=== PATIENT | male | born 2005 | race Caucasian/White ===

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

== ENCOUNTER 2024-01-30 13:46 | Outpatient (AMB) | payer OTHER, MEDICAID, SELFPAY ==
[2024-01-30 13:55] VITALS: BP 106/60; PULSE 78; BMI 17.9
--- NOTE | 2024-01-30 13:55 | MHC.OFFVIS ---
Intake Vital Signs 01/30/24 13:55 Height 6 ft Weight 132 lb BMI 17.9 BP 106/60 Blood Pressure Location Lt brachial Position Sitting Pulse 78 Intake Visit Reasons: 3 month follow up Intake Note: Patient follow up for abdominal pain. Patient denies any GI issues. 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 Discuss with patient the importance of avoiding dietary triggers and late night snacking. Staying upright for minimal 3 hours after meals discussed with patient specially that patient has lax LES. Patient was encouraged to continue eating more frequently and smaller meals. Try to change his circadian rhythm and sleep at night time and be awake during the day. Patient was also encouraged to spent time outside and do activities. Protein shakes daily 1-2 a day. Referral to psychiatry. Patient has very flat affect denies feeling depressed, however he admits to being on motivated. Patient will also be referred to laboratory technologist. He keeps losing weight. He is not eating enough calories. He was asked to eat at least 3000 calories a day. Patient can start taking low-dose enzymes to see if he will have change in his appetite and will aid in digestion. We did rule out however pancreatic insufficiency. I will see him in 3 months, sooner on as needed basis. Both patient and his mother are agreeable to this plan and verbalize understanding of instructions. They were given the opportunity to ask questions and all questions answered. ? Thank you for allowing me to participate in his care Orders Referrals Psychiatry Referral R45.89 [employer] Nutrition Referral R63.4 Medications New idlqfo-tmwgntxn-bdonalg 12,000-38,000 -60,000 unit (Creon) administer with meals and/or snacks 1 cap PO QID 120 caps 3RF R10.9 Refilled pantoprazole 20 mg PO DAILY 90 tabs 1RF TODAY'S VISIT Patient is here today for follow-up. Patient is accompanied by his mother. Patient reports that he went to see laboratory technologist and was told that he should eat as much as possible. Patient states that he has appetite and is feeling better after starting the pantoprazole. Patient reports that if he eats small amounts and more often he feels better. Occasionally patient will eat large meals and then he will have acid reflux. Patient admits that sometimes he will have chest pressure. On the left side of his chest. Patient describes this as a weird feeling not particularly chest pain. The pain is not reproducible. Denies any shortness of breath or discomfort. Patient despite eating a lot he continues to lose weight. We did rule out pancreatic insufficiency in the past. Patient states that he tried Creon in the past, however he did not see much of a difference. Medication was very expensive and patient decided not to take it. Patient reports that he is moving his bowels well without any issues. Patient states that he is feeling better specially when he follows recommendation made last visit. If he eats more often and smaller meals he definitely feels better. [facility] Medical History Gastroparesis GERD (gastroesophageal reflux disease) Surgical History History of esophagogastroduodenoscopy (EGD) No pertinent past surgical history Family History Mother HTN (hypertension) Maternal Grandmother HTN (hypertension) Social History Household Members: Family Alcohol intake: never Patient Tobacco Use Status: Never used Tobacco Tobacco use type: Cigarette Review of Systems Const Denies weight gain and Denies weight loss ENT Reports no additional complaints, Denies dysphagia and Denies odynophagia Card Reports no additional complaints and Reports chest pain with activity Resp Reports no additional complaints GI Denies abdominal pain, Denies belching, Denies melena, Denies bloating, Denies change in bowel habits, Denies dysphagia, Denies excessive flatus, Reports dyspepsia (Occasional), Reports heartburn (Occasional), Denies diarrhea, Denies loose stools, Denies nausea, Denies odynophagia and Denies vomiting Reports no additional complaints Musc Reports no additional complaints Neuro Reports no additional complaints Psych Reports no additional complaints Endo Reports no additional complaints Physical Exam Vital Signs: Last Vital Signs Pulse 78 01/30/24 13:55 BP 106/60 01/30/24 13:55 BMI result Body Mass Index 17.9 Const General: healthy appearing, no acute distress and well developed Nutritional Appearance: well nourished Orientation/consciousness: patient oriented x3 Resp Effort & Inspection: normal respiratory effort, able to speak in complete sentences, no tracheal deviation and symmetric chest movement Auscultation: clear to auscultation bilaterally Cardio Rate: regular rate GI Inspection: Yes normal to inspection and No distended Palpation (GI): Soft to palpation, not firm, nontender, No hepatosplenomegaly present and Palpable mass present (Periumbilical) Auscultation: normal bowel sounds General: Yes no CVA tenderness Back/Spine/Pelvis Back: no CVA tenderness Skin General skin exam: elasticity normal, turgor normal and dry skin Neuro General: patient oriented x3 Psych Appearance: grossly normal Mental Status: mental status grossly normal Assessment & Plan Assessment & Plan (1) Abnormal weight loss: Code(s): R63.4 - Abnormal weight loss (2) Gastroparesis: Code(s): K31.84 - Gastroparesis (3) Chest pressure: Code(s): R07.89 - Other chest pain Plan Patient continues to lose weight despite eating and having fair appetite. Will send patient for MRCP to rule out any pancreatic abnormalities. Continue eating smaller meals and more often.. Continue pantoprazole daily. Patient was found to have a small umbilical cyst/hernia that was not there before, we will referred to surgery. Patient reports occasional chest pressure-like feeling will send him to see bulb filler. Patient will return in 6 months, sooner on as needed basis. Both patient and his mom are agreeable to plan of care and verbalizes understanding of instructions. They were given the opportunity to ask questions all questions answered. Thank you for allowing me to participate in his care Orders: Orders MR VILLASENOR Today K31.84 - Gastroparesis, R63.4 - Abnormal weight loss Referrals General Surgery Referral K42.9 - Umbilical hernia without obstruction or gangrene Cardiology Referral R07.89 - Other chest pain Medications: Refilled cholecalciferol (vitamin D3) 50 mcg PO DAILY 90 caps 3RF R79.89 - Other specified abnormal findings of blood chemistry Discontinued ccbndp-lklgland-nspnani 12,000-38,000 -60,000 unit (Creon) administer with meals and/or snacks Discontinued Reason: Doctor's Order 1 cap PO QID 120 caps 3RF R10.9 - Unspecified abdominal pain Coding Level of Care Code Est Pt Level 4 (83534) Diagnoses Abnormal weight loss R63.4 Gastroparesis K31.84 Chest pressure R07.89 Time Spent (min) 40 Comment 25 minutes spent with patient and additional 15 minutes spent reviewing his records
== END 2024-01-30 14:29 | disposition home or self-care (01) ==
PROVIDERS: PCP Pediatrics; Visit Provider Nurse Practitioner Family
DX: R63.4 Abnormal weight loss (principal); K31.84 Gastroparesis; R07.89 Other chest pain
CPT/HCPCS: 99214

== ENCOUNTER → 2024-01-30 13:46 | Outpatient (BNVA) | payer OTHER, MEDICAID, SELFPAY | PROVIDERS: PCP Pediatrics; Visit Provider Nurse Practitioner Family ==

== ENCOUNTER 2024-02-19 15:16 | Outpatient (AMB) | payer OTHER, MEDICAID, SELFPAY ==
--- NOTE | 2024-02-19 15:17 | MHC.OFFVIS ---
Intake Vital Signs 02/19/24 15:23 Height 6 ft Weight 135 lb BMI 18.3 BP 134/74 Blood Pressure Location Rt brachial Position Sitting Pulse 74 Intake Visit Reasons: umbilical hernia Intake Note: Patient referred by Dorota Lehman PA-C for umbilical hernia X 1yr. Patient c/o: denies pain, discomfort. Reports normal BM. Clinic Receptionist Required: No Accompanied by: Self / Same As Patient Allergies No Known Allergies Allergy (Verified 02/19/24 15:18) Medication List - Last Reconciled 02/19/24 by Edinson May MD cholecalciferol (vitamin D3) 50 mcg PO DAILY pantoprazole 20 mg PO DAILY HPI umbilical hernia HPI Details 18-year-old male referred for a question of an umbilical hernia. He describes his umbilicus to be quite prominent for the past year after he had been losing weight. He is seeing a tunnel heading inspector because of his weight loss and reflux symptoms. He actually does not notice reducible mass on the umbilicus. He denies any pain or tenderness. [facility] Medical History Umbilical abnormality Gastroparesis GERD (gastroesophageal reflux disease) Surgical History History of esophagogastroduodenoscopy (EGD) No pertinent past surgical history Family History Mother HTN (hypertension) Maternal Grandmother HTN (hypertension) Social History Household Members: Family Alcohol intake: never Patient Tobacco Use Status: Never used Tobacco Tobacco use type: Cigarette Review of Systems Const Denies chills and Denies fever(s) Card Denies chest pain, Denies dyspnea and Denies dyspnea on exertion Resp Denies cough, Denies dyspnea and Denies dyspnea on exertion GI Denies hematochezia and Denies change in bowel habits Denies hematuria and Denies difficulty urinating Musc Denies back pain and Denies limited range of motion Neuro Denies focal weakness and Denies convulsions Psych Denies depression and Denies mood swings Physical Exam Vital Signs: Last Vital Signs Pulse 74 02/19/24 15:23 BP 134/74 02/19/24 15:23 BMI result Body Mass Index 18.3 Const General: comfortable and no acute distress Orientation/consciousness: patient oriented x3 Neck Neck: Yes no lymphadenopathy Resp Auscultation: clear to auscultation bilaterally Cardio Rhythm: regular rhythm GI Other: No umbilical hernia or fascial defect seen even with Valsalva maneuvers Palpation (GI): Soft to palpation, nontender and no guarding Neuro General: patient oriented x3 Assessment & Plan Assessment & Plan (1) Umbilical abnormality: Code(s): Q89.9 - Congenital malformation, unspecified Plan: He has appears to have a prominent umbilicus out any hernia. I do not feel any fascial defect. Valsalva maneuvers do not suggest any hernia He has lost significant weight so this apparently had made the umbilical dimple more prominent. I assured him that at this time, I do not feel any hernia defects so does not require any surgical intervention. However, I told him to monitor the area. If he does notice a reducible mass especially with coughing or exertion, he can come back to the office to be re-evaluated. Coding Level of Care Code New Pt Level 3 (89318) Diagnoses Umbilical abnormality Q89.9
[2024-02-19 15:23] VITALS: BP 134/74; PULSE 74; BMI 18.3
== END 2024-02-19 15:34 | disposition home or self-care (01) ==
PROVIDERS: PCP Pediatrics; Referring Provider Nurse Practitioner Family; Visit Provider Surgery
DX: Q89.9 Congenital malformation, unspecified (principal)
CPT/HCPCS: 99203

== ENCOUNTER → 2024-02-19 15:16 | Outpatient (BNVA) | payer OTHER, MEDICAID, SELFPAY | PROVIDERS: PCP Pediatrics; Referring Provider Nurse Practitioner Family; Visit Provider Surgery ==

== ENCOUNTER 2024-03-29 14:16 | Outpatient (AMB) | payer OTHER, MEDICAID, SELFPAY ==
[2024-03-29 14:20] VITALS: BP 122/68; PULSE 93; O2SAT 99; BMI 18.3
--- NOTE | 2024-03-29 14:20 | MHC.OFFVIS ---
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 He has been referred from Gastroenterology. According to the notes, he has a history of gastroparesis as well as GERD. From a cardiac standpoint, there is a concern for chest pains and hence he is referred here. He describes a vague pain in the left side of the chest. Very random and can happen any time. No specific provoking or relieving factors. No history of any cardiomyopathy or congenital heart disease. No exertional shortness of breath. No previous cardiac diagnosis. They believe he has had an echocardiogram several years ago through pediatric Cardiology at [facility]. [facility] Medical History Umbilical abnormality Gastroparesis GERD (gastroesophageal reflux disease) Surgical History History of esophagogastroduodenoscopy (EGD) No pertinent past surgical history Family History Mother HTN (hypertension) Maternal Grandmother HTN (hypertension) Social History Household Members: Family Alcohol intake: never Patient Tobacco Use Status: Never used Tobacco Tobacco use type: Cigarette Review of Systems Const Denies weakness ENT Denies dizziness Card Denies chest pain, Denies chest pain with activity, Denies syncope, Denies rapid heart rate, Denies pedal edema, Denies edema, Denies leg edema, Denies lightheadedness, Denies palpitations, Denies dyspnea, Denies dyspnea on exertion and Denies orthopnea Resp Denies cough, Denies dyspnea and Denies dyspnea on exertion GI Denies hematochezia and Denies change in stool character Musc Denies abnormal gait, Denies muscle cramps, Denies muscle weakness, Denies numbness, Denies radiating pain into limb and Denies tingling Neuro Denies abnormal gait, Denies dizziness, Denies syncope, Denies numbness, Denies tingling and Denies weakness Endo Denies palpitations Physical Exam Vital Signs: Last Vital Signs Pulse 93 03/29/24 14:20 BP 122/68 03/29/24 14:20 Pulse Ox 99 03/29/24 14:20 Oxygen Delivery Method Room Air 03/29/24 14:20 BMI result Body Mass Index 18.3 Const General: comfortable and no acute distress Orientation/consciousness: patient oriented x3 HEENT Other: Unremarkable Head: Yes normal to inspection Neck Neck: Yes normal visual inspection Chest Chest palpation & inspection: normal inspection of the chest Resp Auscultation: clear to auscultation bilaterally Cardio Palpation: normal PMI Heart sounds: S1 normal heart sound present, S2 normal heart sound present, no gallops, no murmurs and no rubs GI Palpation (GI): Soft to palpation Back/Spine/Pelvis Other: unremarkable Skin General skin exam: no rashes or lesions noted Neuro General: patient oriented x3 Extrem General: Yes normal to inspection Psych Mental Status: mental status grossly normal Office Procedures EKG Details: EKG with sinus rhythm at 93/Min; no significant ST-T changes and otherwise unremarkable[place] [id number], Complete Assessment & Plan Assessment & Plan (1) Precordial chest pain: Code(s): R07.2 - Precordial pain Category: Medical Plan No obvious murmur or other abnormalities on exam. Get an echocardiogram to assess for any cardiomyopathy or other structural findings. Otherwise, mainly reassurance. Discussed with mother. Orders: Orders CA echo transthoracic complete Today R07.2 - Precordial pain Coding Level of Care Code New Pt Level 3 (36500) Diagnoses Precordial chest pain R07.2 CPT Codes EKG - CPT: 89732-[id number], Complete ([id number])
== END 2024-03-29 14:40 | disposition home or self-care (01) ==
PROVIDERS: PCP Pediatrics; Visit Provider Internal Medicine
DX: R07.2 Precordial pain (principal)
CPT/HCPCS: 93010; 99203

== ENCOUNTER → 2024-03-29 14:16 | Outpatient (BNVA) | payer OTHER, MEDICAID, SELFPAY | PROVIDERS: PCP Pediatrics; Visit Provider Internal Medicine | DX: R07.2 Precordial pain (principal) | CPT/HCPCS: 93005 ==

== ENCOUNTER → 2024-04-16 14:56 | Outpatient (REF) | payer OTHER, SELFPAY ==
--- NOTE | 2024-04-16 15:03 | CA_ITS ---
Transthoracic Echocardiogram Patient (Last, First, Middle): Donnie Early, Gender: Male Date of : 2005 Age: 19 Procedure Date: 04/16/2024 Procedure Type: Transthoracic Echocardiogram Location: OP Height: 182.88 cm Weight: 61.24 kg BSA: 1.80 m2 Heart Rate: bpm BP: 124 / 60 mmHg Store Stock Help: PORTIA Referring MD: Rajesh Vasquez MD Ophthalmic Surgeon: Sean Donahue MD Symptoms: R07.2 - Precordial pain Study Quality: Good ECG Rhythm: Sinus Conclusions: - Essentially normal study Findings Left Ventricle Normal left ventricular size, thickness, and systolic function. The visually estimated ejection fraction is between 55-60%. Spectral Doppler is indicative of a normal filling pattern. Peak GLS is -17.2%, borderline low. Right Ventricle Normal right ventricular cavity size and systolic function. Atria Both atria are normal in size. There is no evidence of interatrial shunt. Aortic Valve Normal aortic valve structure and function. There is no aortic valve stenosis. There is no aortic valve regurgitation. Mitral Valve Normal mitral valve structure and function. There is no mitral valve regurgitation. There is no mitral valve stenosis. Pulmonic Valve The pulmonic valve is likely normal. Tricuspid Valve Normal tricuspid valve structure. There is trace tricuspid valve regurgitation. The right ventricular systolic pressure is normal. The right ventricular systolic pressure is 18 mmHg. Normal right atrial pressure. There is no evidence of pulmonary hypertension. Great Vessels All visible segments of the aorta are normal in size. The pulmonary artery was not well visualized. Venous The inferior vena cava is normal in size and collapses greater than 50% with inspiration. Pericardium/Pleural There is no evidence of pericardial effusion. Measurements 2D Linear Measurements IVSd: 0.80 0.6-0.9/0.6-1.0 cm LVIDd: 5.27 3.9-5.3/4.2-5.9 cm LVIDd Index: 2.93 2.4-3.2/2.2-3.1 cm/m2 LVIDs: 3.88 2.0-3.6 cm LVPWd: 0.78 0.7-1.1 cm Ao Root: 2.80 2.1-3.5 cm LA Diam: 3.40 2.7-3.8/3.0-4.0 cm LAIDs Index: 1.89 1.5-2.3 cm/m2 LV Mass: 182.35 67-162/88-224 g LV Mass Index: 101.31 43-95/49-115 g/m2 LVOT Diam: 2.40 3.0+(-)1.3 cm 2D Systolic Function EF 4C: 56.30 >55% EF 2C: 50.10 >55% Mitral Valve MV Pk E: 0.73 MV PK A: 0.67 MV Decel Time: 128.00 E/A: 1.10 E'Lateral: 21.50 E'Medial: 14.50 E/E' Med: 5.00 E/E' Lat: 3.40 PHT: 37.00 MVA PHT: 5.[address] [place]: 5.70 Aortic Valve AoV Pk Johnny: 1.22 AoV Mn Johnny: 0.76 AoV VTI: 0.26 AoV Pk Grad: 6.00 Aov Mn Grad: 3.00 DORIS Cont.VTI: 3.64 LVOT LVOT Pk Johnny: 0.99 LVOT Mn Johnny: 0.64 LVOT VTI: 0.21 LVOT Pk Grad: 4.00 LVOT Mn Grad: 2.00 LVOT Diam: 2.40 LVOT Area: 4.52 Diastolic Function MV Pk E: 0.73 MV Pk A: 0.67 E/A: 1.10 E'Medial: 14.50 E/E' Med: 5.00 E' Laterial: 21.50 E/E' Lat: 3.40 Right Ventricle TAPSE (mm): 26.00 TVS' Johnny: 17.00 Tricuspid Valve TR Pk Johnny: 1.94 TR Pk Grad: 15.00 RA Press: 3.00 RVSP: 18.00 Great Vessels Aorta Ao Root-2D: 2.80 2.0-3.7 cm Ao Asc: 2.60 2.1-3.4 cm Pulmonary Valve PV Pk Johnny: 1.01 Peak PV Grad: 4.00 Updated in Other Vendor System with Status of Final Sean Donahue MD electronically signed on 04/17/2024 3:48:08 PM with status of Final
== END ==
LOC: HO.CARD 14:56
PROVIDERS: PCP Pediatrics; Visit Provider Internal Medicine
DX: R07.2 Precordial pain (principal)
CPT/HCPCS: 93306; 93356

== ENCOUNTER → 2024-04-16 15:03 | Outpatient (BNV) | payer OTHER, SELFPAY | PROVIDERS: PCP Pediatrics; Visit Provider Internal Medicine Cardiovascular Disease | DX: R07.2 Precordial pain (principal) | CPT/HCPCS: 93306; 93356 ==